=== PATIENT | female | born 1990 | race Hispanic/Latino ===

== ENCOUNTER 2020-06-30 21:49 | Inpatient (IN) | payer MEDICAID, OTHER, SELFPAY ==
[2020-06-30 22:46] VITALS: BMI 27.6
[2020-06-30] MEDS ORDERED: Lidocaine 1% (PF) 30 ML VIAL SC PRN (23:08)
[2020-06-30] MEDS ORDERED: Promethazine HCl 25 MG/ML VIAL IM PRN (23:08)
[2020-06-30] MEDS ORDERED: hydrALAZINE 20 MG/ML VIAL SLOW IVP PRN ×2 (23:08)
[2020-06-30] MEDS ORDERED: Ondansetron PF 4 MG/2 ML Vial IVP PRN (23:08)
--- NOTE | 2020-07-01 | PDOC.LDHP ---
Labor and Delivery H&P Chief complaint: contractions HPI: Patient is a 29 year old at 39.3 weeks by 9.6 week sono, PMHx Thrombocytopenia, presents due to painful contractions that started at 1400 today. She states she has had good movement, no vaginal bleeding or spotting and endorses a small leak of fluid at 1400 causing a small spot on her underwear. Denies history of STDs. Current gestational age (weeks): 39 (3 days) Due date: 07/04/20 Dating criteria: second trimester ultrasound Grav: 3 Para: 2 OB History Details: Both deliveries , gDM in 2nd , no complications at delivery Current complications: other (Thrombocytopenia) Previous surgical history: none Allergies/Adverse Reactions: Allergies Allergy/AdvReac Type Severity Reaction Status Date / Time No Known Allergies Allergy Verified 06/30/20 22:37 Social history: none - Physical Exam General: NAD, resting, breathing through contractions Heart: RRR Lungs: nonlabored breathing Abdomen: NTTP Extremeties: no edema FHT: category 1 [place] contractions every: 6-7 minutes - Vaginal Exam cm dilated: 6 Effacement: 90% Station: -2 - OB Labs Blood type: O RH: positive Antibody Screen: negative HIV: negative RPR: negative HEPSAg: negative 1 hour GCT: negative GBS: negative Urine drug screen: not done Rubella: immune - Assessment L&D Assessment: term patient in labor - Plan Plan: admit to L&D -: Patient is a 29 yo F PMHx of Thrombocytopenia, at 39.3 weeks by 9.6 week sono presents due to contractions. Term , in labor - /-2 - FHTs 150bpm, +accels, -decels, moderate variability, cat I - labs negative - O+, antibody neg - does not want epidural - GBS negative - will recheck in 2 hours Thrombocytopenia - platelets 06/28: 111 - repeat H/H with platelets pending I have discussed this case with Dr. Gloria.
[2020-07-01 00:14] LABS: Hemoglobin 13.1 g/dL (12.0-16.0); Mean Corpuscular HGB CONC 34.6 g/dL (32.0-36.0); Mean Corpuscular Hemoglobin 32.6 pg (27.0-31.0); Mean Corpuscular Volume 94.4 fL (78.0-98.0); Mean Platelet Volume 11.4 fL (7.4-10.4); Platelet Count 110 thou/uL (130-400); RBC Distribution Width 12.2 % (11.5-14.5); Red Blood Cell (RBC) Count 4.01 mill/uL (4.20-5.40); White Blood Cell (WBC) Count 8.3 thou/uL (4.8-10.8)
--- NOTE | 2020-07-01 00:28 | PDOC.BPN ---
- Brief Progress Note OBGYN Faculty Admit note I have seen the patient at bedside. HX reviewed with the patient and resident team. Patient of the [facility]. Admit exam 6cm. Vitals stable. We will admit for active labor care. Please see full H&P
[2020-07-01 00:50] LABS: HBSAg Index 0.16 S/CO (0-0.99); Hep B Surf Ag Non-Reactive S/CO (NonReactive); Syphilis Antibody Nonreactive (Nonreactive); Syphilis Antibody Index 0.03 S/CO (<1.00 Non-Reactive)
--- NOTE | 2020-07-01 01:35 | PDOC.LDPN ---
Labor & Delivery Progress Note - Subjective Subjective: comfortable, painful contractions - Objective Vital signs reviewed and normal: yes General: NAD, resting, breathing through contractions Uterine fundus: non tender Dilation: 7.5 Effacement: 90% Station: -1 FHT: category 1, variability present [place] contractions every: not picking up well on monitor - Assessment (1) Term Code(s): Z34.90 - ENCNTR FOR SUPRVSN OF NORMAL , UNSP, UNSP TRIMESTER Current Visit: Yes Status: Acute Plan: continue plan of care -: Patient is a 29 yo F PMHx of Thrombocytopenia, at 39.3 weeks by 9.6 week sono presents due to contractions. Term , in labor - labs negative - O+, antibody neg - does not want epidural - GBS negative - /2 @2345 - 7. @0130 - cat I strip - will recheck in 3-4 hours Thrombocytopenia - platelets 06/28: 111 - repeat H/H with platelets pending I have discussed this case with Dr. Gloria.
[2020-07-01] MEDS ORDERED: Lactated Ringer's 1,000 ML IV SCH (02:30)
--- NOTE | 2020-07-01 03:48 | PDOC.BPN ---
- Brief Progress Note OB Faculty Delivery Note: As I was attending to another patient, I was called that LDR3 was delivering. My leak detection engineer phone was not getting a signal. I arrived as baby was delivering en caul with Dr Mendez/Resident team at perineum. Baby vigours male. No complications noted. Present for delivery. Please see full delivery note.
[2020-07-01] MEDS: NS / Oxytocin 40 units/1000ml 1,000 ML IV PRN ×2 (03:50→05:18)
[2020-07-01] MEDS ORDERED: Butorphanol Tartrate 1 MG/ML VIAL ONE (03:51)
--- NOTE | 2020-07-01 04:02 | PDOC.OPDEL ---
OB Operative/Delivery Note Delivery Dr/Surgeon: Julee / Andrea - Additional Findings/Plan Compilations/Other Findings: Vaginal Delivery note Delivering Physician: Dr. Catalina Ladd, Dr. July Mendez Attending: Dr. Gloria Procedure: Spontaneous Vaginal Delivery Anesthesia: None QBL: 62mL. Pre-op Diagnosis: 1. Term intrauterine in labor 2. Hx of thrombocytopenia Post-op Diagnosis: 1. Term intrauterine , delivered 2. same as above Indications: A 29 y/o female presented in active labor. Delivery Note: This is 29 y/o female @ 39.4wks who delivered a viable M at 0344. Following an uneventful antepartum course, a vigorous M was delivered over an intact perineum in the occipitoanterior position. Anterior Shoulder and then remainder of the body delivered. No nuchal cord. The head was held down and mouth and nares were bulb suctioned. Cord clamped and cut and cord blood collected. Placenta delivered intact with a 3 vessel cord noted. Fundal massage was performed and the fundus was firm. The cervix and vagina were inspected and found to be free of lacerations. Infant went to nursery in good condition for routine care. Apgars were 9/9 at 1 & 5 minutes, respectively. Patient tolerated delivery well and went to after routine recovery/care.
[2020-07-01] MEDS ORDERED: Butorphanol Tartrate 1 MG/ML VIAL SLOW IVP PRN (04:05)
[2020-07-01] MEDS ORDERED: Adacel (T-DAP) 0.5 ML SYRINGE IM ONE (06:38)
[2020-07-01] MEDS ORDERED: hydrALAZINE 20 MG/ML VIAL SLOW IVP PRN (06:38)
[2020-07-01] MEDS ORDERED: Bisacodyl 10 MG SUPP PR PRN (06:38)
[2020-07-01] MEDS ORDERED: diphenhydrAMINE 25 MG CAP PO PRN (06:38)
[2020-07-01] MEDS ORDERED: Ondansetron PF 4 MG/2 ML Vial IVP PRN (06:38)
[2020-07-01] MEDS ORDERED: Milk Of Magnesia 30 ML UDCUP PO PRN (06:38)
[2020-07-01] MEDS ORDERED: Preparation H Ointment 28 GM TUBE PR PRN (06:38)
[2020-07-01] MEDS ORDERED: Lanolin Ointment 7 GM TUBE TOP PRN (06:38)
[2020-07-01] MEDS ORDERED: NS / Oxytocin 40 units/1000ml 1,000 ML IV SCH (06:38)
[2020-07-01] MEDS ORDERED: Benzocaine-Menthol 82.5 ML CAN TOP PRN (06:38)
[2020-07-01] MEDS: Docusate Calcium (SURFAK) 240 MG CAP PO SCH ×2 (07:39→21:00)
[2020-07-01] MEDS: Ibuprofen 800 MG TAB PO SCH ×2 (07:39→16:17)
[2020-07-01] MEDS: Prenatal Vitamin 1 TAB PO SCH (07:39)
[2020-07-01] MEDS: Ferrous Sulfate 325 MG TAB PO SCH ×2 (09:18→17:10)
[2020-07-01 15:03] LABS: SARS-CoV-2 MS2 Positive; SARS-CoV-2 N Gene Negative; SARS-CoV-2 S Gene Negative; SARS-CoV-2 by NAA Not Detected (NotDetected); SARS-CoV-2 orf1ab Negative
--- NOTE | 2020-07-02 03:06 | PDOC.PP ---
Post Progress Note Post Day #: 1 Subjective: Doing well, no concerns. PO intake tolerated: yes Flatus: yes Ambulation: yes Vital Signs (12 hours) Temp Pulse Resp BP 07/01/20 16:00 98.5 F 71 18 109/65 Weight Weight 73.028 kg - Physical Examination General: NAD Cardiovascular: no m/r/g, RRR Respiratory: clear to auscultation bilaterally, non-labored breathing Abdominal: + bowel sounds, lochia, no distention, appropriately TTP Neurological: no gross focal deficits Psychiatric: A&Ox3, normal affect Result Diagrams: 07/01/20 00:02 Additional Labs: Post Labs Blood Type O POSITIVE 07/01/20 00:02 Hep Bs Antigen Non-Reactive S/CO (NonReactive) 07/01/20 00:02 (1) Vaginal delivery Code(s): O80 - ENCOUNTER FOR FULL-TERM UNCOMPLICATED DELIVERY Status: Acute - Assessment/Plan Term , delivered. S/P - Routine PP care - Ibuprofen scheduled for pain control. - Will f/u at [facility] for PP care. - Stable for d/c today if baby is ready for d/c. Thrombocytopenia of - aware, will recheck a cbc at follow up. - platelets 110 Najma BENOIT PGY2 Addendum - Attending - Attending Attestation Date/Time: 07/02/20 0700 I personally evaluated the patient and discussed the management with Dr. Mendez. I agree with the History, Examination, Assessment and Plan documented above.
[2020-07-02] MEDS: Ibuprofen 800 MG TAB PO SCH ×4 (06:30→15:40)
[2020-07-02] MEDS: Docusate Calcium (SURFAK) 240 MG CAP PO SCH (08:25)
[2020-07-02] MEDS: Prenatal Vitamin 1 TAB PO SCH (08:25)
[2020-07-02 09:43] VITALS: BP 115/57; TEMP 98.6
[2020-07-02] MEDS: Ferrous Sulfate 325 MG TAB PO SCH ×2 (09:50→16:40)
== END 2020-07-02 17:00 | disposition home or self-care (01) | DRG 807 ==
LOC: L&D/OP 21:49 → ERHOLD 07-01 01:19 → L&D 07-01 01:43 → 3SW 07-01 09:08
PROVIDERS: ADMIT Obstetrics & Gynecology; ATTEND Obstetrics & Gynecology
PROC: 10E0XZZ Delivery of Products of Conception, External Approach (ICD-10-PCS; principal; 2020-07-01)
DX: O99.12 Other diseases of the blood and blood-forming organs and certain disorders involving the immune mechanism complicating childbirth (principal); Z37.0 Single live birth; D69.6 Thrombocytopenia, unspecified; Z3A.39 39 weeks gestation of pregnancy
CPT/HCPCS: 36415; 85027; 86780; 86850; 86900; 86901; 87340; 87635; 99285; J0595; U0003

== ENCOUNTER 2025-11-07 13:48 | Outpatient (CLI) | payer MEDICAID | END 2025-11-07 13:49 | disposition home or self-care (01) | LOC: ULT 13:48 | PROVIDERS: ATTEND Family Medicine | DX: O09.622 Supervision of young multigravida, second trimester (principal); N28.89 Other specified disorders of kidney and ureter; Z3A.23 23 weeks gestation of pregnancy | CPT/HCPCS: 76805 ==